=== PATIENT | male | born 1955 | race Asian ===

== ENCOUNTER 2021-12-19 22:32 | Emergency (ER) | payer OTHER ==
[~2021-12-19] VITALS: Ht 170.2 cm; Wt 90.7 kg
[2021-12-19 22:32] VITALS: TEMP 98
[~2021-12-19 22:32] MED LIST: ALAVERT10 M2 PO; AMANTADINE100 M1 PO; AMANTADINE100 MG PO; ANTI-DIARRHE2 MG PO; BENADRYL 50M50 MG/ML IM; BENZ1TAB43 PO; BENZONATATE200 MG PO; BENZTROPINE2 MG PO; CLON0.5T36 PO; DIPH25CA90 PO; DIVA500T2 PO; DIVALPROEX500 MG PO; DONE5TAB PO; FLUP10TA3 PO; FLUP25IN8 IM; FLUPHENAZINE25 MG/ML IM; HALO5INJ3 IM; HALO5TAB10 PO; INSUINJ47 SC; LOPID PO; LORA2INJ21 INJ; METF100038 PO; NAMENDA10 MG PO; NOVOLIN R; PROVERA10 MG PO; QUET300T PO; QUETIAPINE400 MG PO; TOPAMAX50 MG PO; TRAM50TA PO; TRAZ100T PO; ZIPR20IN IM
[2021-12-19 22:50] LABS: PLATELET COUNT 218 K/uL (142-355)
[2021-12-19 23:04] LABS: POTASSIUM 3.8 mmol/L (3.6-5.2)
[2021-12-19 23:45] VITALS: BP 175/82
[2021-12-20] MEDS ORDERED: VITAMIN D31000 UNIT PO (08:44)
[2021-12-20] MEDS ORDERED: LISI20TA11 PO (08:45)
[2021-12-20] MEDS ORDERED: METO50TA63 PO (08:45)
[2021-12-20] MEDS ORDERED: ASCO500T18 PO (08:46)
[2021-12-20] MEDS ORDERED: ZINC SULFATE220 M2 PO (08:47)
[2021-12-20] MEDS ORDERED: OXCARBAZEPIN600 MG PO (08:48)
[2021-12-20] MEDS ORDERED: CLON1TAB18 PO (08:48)
[2021-12-20] MEDS ORDERED: SEROQUEL100 MG PO (08:49)
[2021-12-20] MEDS ORDERED: SEROQUEL50 MG PO (08:50)
[2021-12-20] MEDS ORDERED: VALPROIC ACID PO (08:55)
== END 2021-12-20 00:18 | disposition home or self-care (01) ==
LOC: ED 22:32
PROVIDERS: Hospitalist
DX: F20.89 Other schizophrenia (principal); F03.91 Unspecified dementia, unspecified severity, with behavioral disturbance; Z11.52 Encounter for screening for COVID-19; Z04.6 Encounter for general psychiatric examination, requested by authority
CPT/HCPCS: 36415; 80053; 85027; 87635; 93005; 99283; U0003

== ENCOUNTER 2022-02-27 18:15 | Emergency (ER) | payer OTHER ==
[~2022-02-27] VITALS: Ht 200.7 cm; Wt 85.3 kg
[~2022-02-27 18:15] MED LIST changes: +ASCO500T18 PO; +CLON1TAB18 PO; +DIVA250T PO; +HALO50IN4 IM; +LISI20TA11 PO; +METO50TA63 PO; +OXCARBAZEPIN300 MG PO; +OXCARBAZEPIN600 MG PO; +SEROQUEL100 MG PO; +SEROQUEL50 MG PO; +VALPROIC ACID PO; +VITAMIN D31000 UNIT PO; +ZINC SULFATE220 M2 PO; +ZIPR80CA PO
[2022-02-27 18:44] LABS: PLATELET COUNT 203 K/uL (142-355)
[2022-02-27 18:55] LABS: POTASSIUM 5.1 mmol/L (3.6-5.2)
[2022-02-27 19:45] VITALS: BP 148/98; TEMP 97.8
[2022-02-28] MEDS ORDERED: DONE5TAB PO (00:19)
[2022-02-28] MEDS ORDERED: SEROQUEL200 MG PO (00:22)
[2022-02-28] MEDS ORDERED: DIVA125C PO (00:26)
[2022-02-28] MEDS ORDERED: CLONAZEP ODT0.25 MG PO (10:00)
[2022-02-28] MEDS ORDERED: DIVALPROEX125 M1 PO (10:06)
== END 2022-02-27 19:45 | disposition still patient (30) ==
LOC: ED 18:15
PROVIDERS: Emergency Medicine
DX: F20.89 Other schizophrenia (principal); R45.1 Restlessness and agitation; I10 Essential (primary) hypertension; R47.01 Aphasia; R93.89 Abnormal findings on diagnostic imaging of other specified body structures; Z11.52 Encounter for screening for COVID-19; Z04.6 Encounter for general psychiatric examination, requested by authority
CPT/HCPCS: 80053; 85027; 87635; 93005; 96372; 99283; J0360; J0696; J2001; U0003